=== PATIENT | female | born 1950 | race Caucasian/White ===

== ENCOUNTER 2016-05-14 07:30 | Outpatient (RCR) | payer BC, MEDICARE ==
[~2016-05-14 07:30] MED LIST: ANTIVERT 25MG25 MG PO; CALCITRIOL1 MCG/M1 PO; CALCIUM WITH D1 CTB PO; LEVOXYL0.1 MG PO; LEVOXYL0.112 MG PO; LEVOXYL0.125 MG PO; OS-CAL 500 + D1 TAB PO; OSCAL 500 TAB500 MG PO; PHENERGAN 25 TA25 MG PO; ROCALTROL1 MCG/ML PO; TUSS PO; VIACTIV PO; VITAMIN D8000 IU/ML PO; ZOFRAN ODT4 MG PO; [UNRECOGNIZED DRUG - CODE] PO; [UNRECOGNIZED DRUG - OTHER] PO
== END 2016-05-31 | disposition still patient (30) ==
LOC: WSPT
DX: I63.8 Other cerebral infarction (principal)
CPT/HCPCS: G8978-GP; G8979-GP; G8980-GP

== ENCOUNTER → 2017-03-09 | Outpatient (CLI) | payer BC ==
[2005-07-29 23:15] VITALS: BP 126/57
[~2017-03-09] VITALS: Ht 165.1 cm; Wt 66.4 kg
[~2017-03-09] MED LIST changes: +LIPITOR20 MG PO
[2017-03-09 07:19] VITALS: BP 126/63; PULSE 75
[2017-03-09 07:50] VITALS: BP 143/68; PULSE 77
== END ==
LOC: COL.RAD 06:45
DX: R91.8 Other nonspecific abnormal finding of lung field (principal); I25.10 Atherosclerotic heart disease of native coronary artery without angina pectoris

== ENCOUNTER 2020-10-31 22:03 | Emergency (ER) | payer BC ==
[~2020-10-31] VITALS: Ht 170.2 cm; Wt 65.9 kg
[2020-10-31 22:52] LABS: BASO % 0.3 % (0.0-2.0); GRAN # 2.2 (1.4-6.5); GRAN % 63.1 % (42.2-75.2); HEMATOCRIT 40.3 % (37.0-47.0); HEMOGLOBIN 13.4 g/dl (12.5-16.0); LYMPH # 0.7 (1.2-3.4); MEAN CELL VOLUME 89 fl (80.0-100.0); MEAN CORPUSCULAR HEMOGLOBIN 30 pg (27.0-31.0); MEAN CORPUSCULAR HGB CONC 33 g/dl (33.0-37.0); MEAN PLATELET VOLUME 10.2 fl (7.4-10.4); MONO # 0.5 (0.1-0.6); MONO % 15.6 % (1.7-9.3); PLATELET COUNT 159 K/mm3 (130-400); RED BLOOD COUNT 4.52 M/mm3 (4.10-5.30); REDCELL DISTRIBUTION WIDTH-CV 13.3 % (11.5-14.5)
[2020-10-31 23:11] LABS: ALANINE AMINOTRANSFERASE 15 U/L (4-34); ALBUMIN 3.9 gm/dL (3.5-5.0); ALKALINE PHOSPHATASE 71 U/L (50-136); ANION GAP 8 mmol/L (7-16); AST,SGOT 26 U/L (15-37); BILIRUBIN,TOTAL 0.3 mg/dL (0.0-1.0); BLOOD UREA NITROGEN 16 mg/dL (7-17); CALCIUM 8.1 mg/dL (8.4-10.2); CARBON DIOXIDE 25 mmol/L (22-30); CHLORIDE 102 mmol/L (98-107); CREATININE, serum 0.91 (0.52-1.25); GLUCOSE 98 mg/dL (74-106); LIPASE 396 U/L (23-300); POTASSIUM 4.6 mmol/L (3.4-5.0); SODIUM 134 mmol/L (137-145); TOTAL PROTEIN 6.8 gm/dL (6.4-8.2)
[2020-10-31 23:22] LABS: TROPONIN-I < 0.012 ng/mL (0.000-0.035)
[2020-11-01] MEDS ORDERED: ZOFRAN ODT4 MG PO (01:21)
[2020-11-01 01:55] VITALS: BP 139/74; PULSE 86; TEMP 97.7
== END 2020-11-01 02:00 | disposition home or self-care (01) ==
LOC: COL.ER 22:03
PROVIDERS: Physician Assistant
DX: U07.1 COVID-19 (principal); K85.90 Acute pancreatitis without necrosis or infection, unspecified; E03.9 Hypothyroidism, unspecified; Z90.49 Acquired absence of other specified parts of digestive tract; Z79.890 Hormone replacement therapy
CPT/HCPCS: J1100; J7030; Q0244

== ENCOUNTER 2021-01-02 09:20 | Day surgery (SDC) | payer BC ==
[2005-07-29 23:15] VITALS: BP 126/57
[~2021-01-02] VITALS: Ht 162.6 cm; Wt 66.5 kg
[2021-01-02] VITALS (7 sets, daily range): BP systolic 134–158; BP diastolic 51–86; PULSE 65–77; TEMP 97.9–98.2
--- NOTE | 2021-01-02 11:00 | NUR ---
Patient covid positive 2-3 weeks ago. No need to retest per endo staff.
[2021-01-02] MEDS ORDERED: ASPIRIN 81M81 MG/TA2 PO (11:15)
--- NOTE | 2021-01-02 13:20 | NUR ---
1215 Pt returns from endo procedure via cart and RN assist to GI [facility]. Pt ambulates from cart to recliner with RN assist. Monitors on and alarms set. Call light within reach. Report received from Danielle OLMOS. Pt alert and oriented. Pt denies any pain or nausea. 1245 No complications noted. 1315 Discharge instructions given to pt. All questions answered to her satisfaction. Handed to pt are a thank you card and discharge information. 1320 Pt transferred out of the hospital via wheelchair and this RN assist, to private vehicle driven by pt's .
== END 2021-01-02 13:20 | disposition home or self-care (01) ==
LOC: SDCO 09:20
DX: K22.2 Esophageal obstruction (principal); U07.1 COVID-19; E03.9 Hypothyroidism, unspecified; Z85.818 Personal history of malignant neoplasm of other sites of lip, oral cavity, and pharynx; Z90.89 Acquired absence of other organs; Z79.890 Hormone replacement therapy; Z79.899 Other long term (current) drug therapy; Z87.891 Personal history of nicotine dependence
CPT/HCPCS: C1726; J2704; J7030

== ENCOUNTER 2021-04-17 13:14 | Day surgery (SDC) | payer BC ==
[2005-07-29 23:15] VITALS: BP 126/57
[~2021-04-17] VITALS: Ht 162.6 cm; Wt 65.9 kg
[~2021-04-17 13:14] MED LIST changes: +ASPIRIN 81M81 MG/TA2 PO
[2021-04-17 13:58] VITALS: BP 145/63; PULSE 64; TEMP 98.4
--- NOTE | 2021-04-17 14:03 | NUR ---
Patient has larynegectomy stoma. Called RT and asked for a trach mask. Trach mask obtained from [place], RT. Put together with oxygen tubing and set in patient's chart.
[2021-04-17 15:00] VITALS: BP 118/49; PULSE 81; TEMP 98.3
--- NOTE | 2021-04-17 15:00 | NUR ---
PATIENT TRANSPORTED PER CART FROM GI SUITE TO BAY 4 ACCOMPANIED BY DONALD RN. PATIENT AMBULATED FROM CART TO CHAIR WITH 2 ASSIST. SLOW STEADY GAIT. PATIENT IS ALERT AND NON VERBAL. IN ROOM. PATIENT DOES MOTION TO ANSWER QUESTIONS. MONITORS APPLIED. VSS ON ROOM AIR. DR GARCIA DOES TALK WITH PATIENT AND . VERBAL REPORT RECEIVED.
[2021-04-17 15:15] VITALS: BP 149/68; PULSE 64
--- NOTE | 2021-04-17 15:15 | NUR ---
VSS ON ROOM AIR. PATIENT TOLERATES PUDDING AND WATER WITHOUT PROBLEMS. PATIENT AND WATCHING TV.
[2021-04-17 15:30] VITALS: BP 148/77; PULSE 65
--- NOTE | 2021-04-17 15:30 | NUR ---
VSS ON ROOM AIR. PATIENT MOTIONS THAT SHE HAS NO PROBLEMS. STATES THEY ARE READY TO GO. IV DC'D WITH CATHETER TIP INTACT. PRESSURE AND BANDAGE APPLIED. DISCHARGE INSTRUCTIONS GIVEN VERBAL AND DISCHARGE PACKET PROVIDED. QUESTIONS ANSWERED AND VOICED UNDERSTANDING. PATIENT NODS. PATIENT CHANGES INTO STREET CLOTHES. 1540 PATIENT DISCHARGED PER WHEEL CHAIR ACCOMPANIED BY ENDO STAFF TO PRIVATE VECHILE DRIVEN BY .
== END 2021-04-17 15:40 | disposition home or self-care (01) ==
LOC: SDCO 13:14
DX: K22.2 Esophageal obstruction (principal); E78.5 Hyperlipidemia, unspecified; E03.9 Hypothyroidism, unspecified; I63.9 Cerebral infarction, unspecified; Z79.890 Hormone replacement therapy; Z79.899 Other long term (current) drug therapy; Z85.818 Personal history of malignant neoplasm of other sites of lip, oral cavity, and pharynx; Z90.89 Acquired absence of other organs
CPT/HCPCS: C1726; J2704; J7030

== ENCOUNTER 2021-07-10 05:52 | Day surgery (SDC) | payer BC ==
[2005-07-29 23:15] VITALS: BP 126/57
[~2021-07-10] VITALS: Ht 162.6 cm; Wt 68.1 kg
[2021-07-10 06:44] VITALS: BP 162/72; PULSE 66; TEMP 96.9
[2021-07-10 07:25] VITALS: BP 122/60; PULSE 74; TEMP 97.7
--- NOTE | 2021-07-10 07:25 | NUR ---
Pt arrived from Endo suite drowsy but oriented. Vital signs obtained. Verbal report obtained. Pt nodded her head yes for ice water and applesauce. Call esparza is within reach on her bedside table. is present.
[2021-07-10 07:40] VITALS: BP 129/71; PULSE 69
--- NOTE | 2021-07-10 07:40 | NUR ---
Vitals obtained. Pt nodded no when asked about nausea. No vomiting. Pt continues to sip on her water and has finished her applesauce. Call esparza remains within reach.
[2021-07-10 07:55] VITALS: BP 146/73; PULSE 64
--- NOTE | 2021-07-10 07:55 | NUR ---
Vitals obtained. DC instructions and edcational material was reviewed. Pt nodded no to questions or concerns, and denied both. IV discontinued. Catheter tip intact and pressure dressing applied. Pt nodded no to needing assistance changing into personal clothes. Call esparza remains within reach. Awaiting DR to speak with pt.
--- NOTE | 2021-07-10 08:19 | NUR ---
Pt dismissed from endo via wheelchair by NICKOLAS regalado. Pt has DC packet and pt personal belongings. Pt transferred into the care of David, who is present to drive.
== END 2021-07-10 08:20 | disposition home or self-care (01) ==
LOC: SDCO 05:52
DX: K22.2 Esophageal obstruction (principal); Z85.818 Personal history of malignant neoplasm of other sites of lip, oral cavity, and pharynx
CPT/HCPCS: C1726; J2704; J7120

== ENCOUNTER 2021-10-11 11:43 | Emergency (ER) | payer BC ==
[~2021-10-11] VITALS: Ht 162.6 cm; Wt 68.2 kg
[2021-10-11 11:47] VITALS: BP 151/77; TEMP 98.1
[2021-10-11 12:14] VITALS: PULSE 82
== END 2021-10-11 12:14 | disposition home or self-care (01) ==
LOC: COL.ER 11:43
DX: S61.001A Unspecified open wound of right thumb without damage to nail, initial encounter (principal); Z23 Encounter for immunization; Z91.040 Latex allergy status; Z28.310 Unvaccinated for COVID-19; W26.8XXA Contact with other sharp object(s), not elsewhere classified, initial encounter

== ENCOUNTER 2022-08-05 13:02 | Day surgery (SDC) | payer BC ==
[2005-07-29 23:15] VITALS: BP 126/57
[~2022-08-05] VITALS: Ht 162.6 cm; Wt 66.3 kg
[2022-08-05 14:12] VITALS: BP 174/75; PULSE 70; TEMP 98.1
[2022-08-05 14:30] VITALS: BP 143/64; PULSE 66; TEMP 97.7
[2022-08-05 14:45] VITALS: BP 155/66; PULSE 68
[2022-08-05 15:00] VITALS: BP 175/81; PULSE 73; TEMP 97.5
--- NOTE | 2022-08-05 15:15 | NUR ---
1430 PT RETURNED TO BAY 4 AFTER PROCEDURE, ALERT AND ORIENTED, BREATHING UNLABORED. RECEIVED REPORT FROM NICKOLAS HOFFMAN. DR. GARCIA IN TO UPDATE PT AND HER ON PROCEDURE RESULTS 1440 PT GIVEN PUDDING AND WATER. TOLERATED PO INTAKE WELL 1459 REVIEWED DISCHARGE INSTRUCTIONS FROM DR. GOODEN, AND PT EDUCATIONAL MATERIALS. 1510 PT TO LOBBY VIA WHEEL CHAIR FOR RIDE HOME WITH HER IN POV.
== END 2022-08-05 15:15 | disposition home or self-care (01) ==
LOC: SDCO 13:02
DX: K22.2 Esophageal obstruction (principal); Z28.310 Unvaccinated for COVID-19
CPT/HCPCS: C1726; J2704; J3010

== ENCOUNTER 2023-05-06 05:28 | Day surgery (SDC) | payer BC ==
[~2023-05-06] VITALS: Ht 162.6 cm; Wt 64.8 kg
[~2023-05-06 05:28] MED LIST changes: +LR 1,000 ML IV SCH; +Ondansetron 4 MG/2 ML VIAL IV PRN
--- NOTE | 2023-05-06 06:12 | NUR ---
Pt arrived with for procedure, VSS, consents reviewed and signed, reveiwed history/meds/allergies; pt with chronic trach covered, does not use O2; PIV placed to R hand and LR hung.
[2023-05-06 06:14] VITALS: BP 141/81; PULSE 69; TEMP 98.2
[2023-05-06] MEDS ORDERED: Succinylcholine PF 100 MG/5 ML SYRINGE/POLY AMP IV ONE (07:12)
[2023-05-06 07:30] VITALS: BP 157/77; PULSE 74; TEMP 98
--- NOTE | 2023-05-06 07:30 | NUR ---
The patient arrived back to [facility] from the Endoscopy Suite at this time. The patient ambulated from the cart to the recliner in her room with the stand by assistance of two nurses and appeared to tolerate the activity well. Post procedure vital signs were started at this time. is at her bedside. Call light is within reach. The patient agrees to try some ice water at this time. Warm blankets provided. The patient denies any further needs at this time.
[2023-05-06 07:45] VITALS: BP 154/74; PULSE 71
--- NOTE | 2023-05-06 07:45 | NUR ---
The patient appears to be tolerating the water well. The patient denies wanting anything further to eat or drink. Call light remains within reach. at bedside. The patient is waiting to speak to Dr. Snider prior to discharge.
--- NOTE | 2023-05-06 08:00 | NUR ---
Dr. Davenport has been at the patient's bedside to discuss the findings of the procedure. Discharge instructions were reviewed with the patient and her . They both verbalized understanding and have no questions for the nurse at this time. The patient's IV to her right hand was removed and a pressure dressing was applied to the site. The nurse instructed the patient to get dresed and notify the staff when she is ready to be escorted out.
--- NOTE | 2023-05-06 08:10 | NUR ---
The patient was escorted out via wheelchair to a private vehicle by NICKOLAS Burns. The patient's belongings and discharge paperwork were sent with her. The patient's is present to drive her home.
== END 2023-05-06 08:10 | disposition home or self-care (01) ==
LOC: SDCO 05:28
DX: K22.2 Esophageal obstruction (principal)
CPT/HCPCS: C1726; J0330; J2704; J7120

== ENCOUNTER → 2023-06-07 | Outpatient (CLI) | payer BC ==
[~2023-06-07] MED LIST changes: -LR 1,000 ML IV SCH; -Ondansetron 4 MG/2 ML VIAL IV PRN
== END ==
LOC: COL.RAD 07:54
DX: R91.8 Other nonspecific abnormal finding of lung field (principal); J43.9 Emphysema, unspecified; J40 Bronchitis, not specified as acute or chronic; Z98.890 Other specified postprocedural states

== ENCOUNTER 2023-10-28 06:36 | Day surgery (SDC) | payer BC ==
[~2023-10-28] VITALS: Ht 162.6 cm; Wt 65.9 kg
[~2023-10-28 06:36] MED LIST changes: +LR 1,000 ML IV SCH; +Ondansetron 4 MG/2 ML VIAL IV PRN
[2023-10-28] MEDS ORDERED: SYNTHROID0.112 MG/T PO (06:55)
[2023-10-28] MEDS ORDERED: CALCIUM 600 PLU1 TAB PO (06:58)
[2023-10-28] MEDS ORDERED: ATROVENT I0.2 MG/1 M IH (07:00)
[2023-10-28 07:15] VITALS: BP 155/73; PULSE 65; TEMP 97.9
[2023-10-28] MEDS ORDERED: Lidocaine PF 2% (20 MG/ML) 5 ML VIAL ONE (07:51)
[2023-10-28 08:40] VITALS: BP 132/64; PULSE 63; TEMP 97.5
[2023-10-28 08:55] VITALS: BP 128/57; PULSE 66
[2023-10-28 09:10] VITALS: BP 137/65; PULSE 64
--- NOTE | 2023-10-28 16:53 | NUR ---
0840: PT TO BAY 1 FROM ENDO SUITE. AMBULATED FROM CART TO RECLINER X2 ASSIST. REPORT RECEIVED FROM ENDO NURSE. PT ALERT AND ORIENTED. DENIES PAIN OR NAUSEA. REQUESTING WATER. RESTING IN RECLINER. CALL LIGHT IN REACH. ARNEL SWEENEY, AT BEDSIDE. 0855: PT ALERT AND ORIENTED. TOLERATING WATER. DENIES PAIN AND NAUSEA. RESTING IN RECLINER. IV DC'S AT THIS TIME. ARNEL SWEENEY, AT BEDSIDE. 0910: PT ALERT AND ORIENTED. TOLERTATING WATER. DENIES PAIN AND NAUSEA. RESTING IN RECLINER. ARNEL SWEENEY, AT BEDSIDE. 0915: DR. GARCIA IN TO SPEAK WITH PT. 0913: DISCHARGE EDUCATION DONE AT THIS TIME. PT STATED UNDERSTANDING OF DC INSTRUCTIONS. DC PAPERWORK GIVEN TO PT. PT DENIES ASSISTANCE WITH DRESSING. 0915: PT AMBULATED INDEPENDENTLY FROM RECLINER TO WHEELCHAIR. PT OFF UNIT AT THIS TIME. PT DC TO HOME WITH PER PERSONAL VEHICLE.
== END 2023-10-28 09:15 | disposition home or self-care (01) ==
LOC: SDCO 06:36
DX: K22.2 Esophageal obstruction (principal); Z86.73 Personal history of transient ischemic attack (TIA), and cerebral infarction without residual deficits; Z85.818 Personal history of malignant neoplasm of other sites of lip, oral cavity, and pharynx; Z85.89 Personal history of malignant neoplasm of other organs and systems
CPT/HCPCS: C1726; J2704; J7120

== ENCOUNTER 2023-11-25 12:54 | Day surgery (SDC) | payer BC ==
[~2023-11-25] VITALS: Ht 162.6 cm; Wt 66.3 kg
[~2023-11-25 12:54] MED LIST changes: +ATROVENT I0.2 MG/1 M IH; +CALCIUM 600 PLU1 TAB PO; -LR 1,000 ML IV SCH; +SYNTHROID0.112 MG/T PO
[2023-11-25] MEDS ORDERED: LR 1,000 ML IV ONE (13:15)
[2023-11-25 13:57] VITALS: BP 130/89; PULSE 77; TEMP 98.1
[2023-11-25] MEDS ORDERED: Triamcinolone 40 MG/ML 1 ML VIAL IJ ONE (14:01)
[2023-11-25 14:25] VITALS: BP 120/56; PULSE 69
--- NOTE | 2023-11-25 14:25 | NUR ---
1425 PT ARRIVES VIA CART TO BAY #4. PT ASSISTED SBA WITH TWO STAFF TO RECLINER. PT REQUESTED WATER ONLY, THIS WAS GIVEN. 1450 DR GARCIA IN TO SEE PT AND SPOUSE. ALL QUESTIONS ANSWERED. DC INSTRUCTIONS GIVEN TO PT. ALL QUESTIONS INVITED AND ANSWERED. 1500 PT GETTING DRESSED
[2023-11-25 14:45] VITALS: BP 148/64; PULSE 68
== END 2023-11-25 15:00 | disposition home or self-care (01) ==
LOC: SDCO 12:54
DX: K22.2 Esophageal obstruction (principal); C13.9 Malignant neoplasm of hypopharynx, unspecified
CPT/HCPCS: C1726; J2704; J3301; J7120

== ENCOUNTER 2023-12-23 05:18 | Day surgery (SDC) | payer BC ==
[~2023-12-23] VITALS: Ht 162.6 cm; Wt 66.8 kg
[~2023-12-23 05:18] MED LIST changes: +LR 1,000 ML IV SCH
[2023-12-23 05:27] VITALS: BP 147/67; PULSE 71; TEMP 97
--- NOTE | 2023-12-23 05:40 | NUR ---
The patient ambulated back to [facility] independently using a steady gait and appeared to tolerate the activity well. Vital signs obtained. Consent signed. 20G IV started in right hand with one stick, LR infusing without difficulty. Assessment completed. Home medications reconcilled. brought back to be at her bedside. The patient uses a writing pad to communicate due to her trach stoma causing verbal communication to be difficult. Warm blankets provided. Denies any further needs at this time.
[2023-12-23] MEDS ORDERED: Lidocaine PF 2% (20 MG/ML) 5 ML VIAL ONE (06:46)
[2023-12-23 07:40] VITALS: BP 128/74; PULSE 70; TEMP 97.1
[2023-12-23 07:55] VITALS: BP 136/73; PULSE 66
[2023-12-23 08:10] VITALS: BP 147/75; PULSE 72
--- NOTE | 2023-12-23 08:25 | NUR ---
0740 RETURNS TO ROOM 1 PER CART. AWAKE, ALERT. RESP UNLABORED. AMBULATES TO RECLINER WITH STANDBY ASSIST. DENIES NAUSEA, ABD/CHEST PAIN OR DYSPHAGIA. VITAL SIGNS OBTIANED. CALL LIGHT AT SIDE. IN ROOM 0747 DISCHARGE INSTRUCTIONS REVIEWED. PATIENT VERBALIZES UNDERSTANDING. COPY PROVIDED IN DISCHARGE FOLDER 0800 TOLERATES PO WATER WITHOUT NAUSEA. ADMITS TO SWALLOWING WITHOUT NAUSEA. [address] [id number] DR. GARCIA HERE TO VISIT WITH PATIENT
== END 2023-12-23 08:26 | disposition home or self-care (01) ==
LOC: SDCO 05:18
DX: K22.2 Esophageal obstruction (principal); Z86.73 Personal history of transient ischemic attack (TIA), and cerebral infarction without residual deficits; Z85.818 Personal history of malignant neoplasm of other sites of lip, oral cavity, and pharynx
CPT/HCPCS: C1726; J2704; J7120